=== PATIENT | male | born 1955 | race Caucasian/White ===

== ENCOUNTER → 2017-08-30 | Outpatient (CLI) | payer BC ==
[2015-08-12 09:43] VITALS: BP 112/71
[~2017-08-30] MED LIST: ALLEGRA180 MG PO; CIALIS20 MG PO; DAILY VITE1 TA1 PO; FISH OIL500 MG; FLONASE ALLERG9.9 ML NAS; IRON325 M1; NEXIUM 20MG CAP20 MG PO; VITAMIN E400 UNIT PO; [UNRECOGNIZED DRUG - OTHER]
== END ==
LOC: LAB 09:18
DX: Z00.00 Encounter for general adult medical examination without abnormal findings (principal); Z12.5 Encounter for screening for malignant neoplasm of prostate; Z12.11 Encounter for screening for malignant neoplasm of colon

== ENCOUNTER → 2017-09-15 | Outpatient (CLI) | payer BC ==
[2015-08-12 09:43] VITALS: BP 112/71
== END ==
LOC: LAB 15:06
DX: Z00.00 Encounter for general adult medical examination without abnormal findings (principal); Z12.11 Encounter for screening for malignant neoplasm of colon

== ENCOUNTER → 2018-09-01 | Outpatient (CLI) | payer BC ==
[2015-08-12 09:43] VITALS: BP 112/71
[2018-09-01 09:33] LABS: EOS # 0.1 (0.04-0.40); EOS % 1.2 % (0.0-4.0); HEMATOCRIT 44.9 % (42.0-52.0); LYMPH# 1.8 (1.50-4.00); MEAN CELL VOLUME 88 fl (78-100); MEAN CORPUSCULAR HEMOGLOBIN 29 pg (27-31); MEAN CORPUSCULAR HGB CONC 33 g/dL (33-37); MEAN PLATELET VOLUME 8.8 fl (7.4-10.4); MONO # 0.5 (0.20-0.80); NEU # 3.3 (1.40-6.50); PLATELET COUNT 218 K/mm3 (130-400); RED BLOOD COUNT 5.12 M/mm3 (4.20-5.60); RED CELL DISTRIBUTION WIDTH 13.6 % (11.5-14.5); WHITE BLOOD COUNT 5.7 K/mm3 (4.8-10.8)
[2018-09-01 09:47] LABS: CALCIUM 9.7 mg/dL (8.4-10.2); POTASSIUM 4.1 mmol/L (3.6-5.0); TOTAL BILIRUBIN 0.7 mg/dL (0.2-1.3); TOTAL PROTEIN 6.6 g/dL (6.3-8.2)
[2018-09-01 13:27] LABS: ERYTHROCYTE SEDIMENTATION RATE 5 mm/hr (0-20)
== END ==
LOC: LAB 09:07
PROVIDERS: Internal Medicine
DX: Z12.11 Encounter for screening for malignant neoplasm of colon (principal); Z12.5 Encounter for screening for malignant neoplasm of prostate; Z00.00 Encounter for general adult medical examination without abnormal findings

== ENCOUNTER → 2020-10-23 | Outpatient (CLI) | payer SELFPAY ==
[2015-08-12 09:43] VITALS: BP 112/71
== END ==
LOC: LAB 07:28
DX: U07.1 COVID-19 (principal)

== ENCOUNTER → 2021-05-14 | Outpatient (CLI) | payer MEDICARE ==
[2021-05-14 08:53] LABS: ALBUMIN 3.9 g/dL (3.4-4.8)
[2021-05-14 08:54] LABS: POTASSIUM 4.3 mmol/L (3.5-5.1)
[2021-05-14 08:55] LABS: CALCIUM 9.2 mg/dL (8.3-10.5)
[2021-05-14 08:56] LABS: TOTAL PROTEIN 6.3 g/dL (6.2-8.1)
[2021-05-14 08:58] LABS: TOTAL BILIRUBIN 0.4 mg/dL (0.2-1.2)
[2021-05-14 09:02] LABS: HEMATOCRIT 44.1 % (42.0-52.0); HEMOGLOBIN 15.1 g/dL (13.5-18.0); MEAN PLATELET VOLUME 8.7 fl (7.4-10.4); RED BLOOD COUNT 5.07 M/mm3 (4.20-5.60); RED CELL DISTRIBUTION WIDTH 13.2 % (11.5-14.5); WHITE BLOOD COUNT 4.7 K/mm3 (4.8-10.8)
== END ==
LOC: AMSURD 08:12
PROVIDERS: Internal Medicine
DX: Z01.812 Encounter for preprocedural laboratory examination (principal)

== ENCOUNTER → 2021-09-04 | Outpatient (CLI) | payer MEDICARE ==
[2021-09-04 09:20] LABS: URINE WBC 0 /hpf (0-3)
[2021-09-04 09:38] LABS: BASO # 0.04 K/mm3 (0.02-0.10); EOS # 0.06 K/mm3 (0.04-0.40); EOS % 1.2 % (0.0-4.0); HEMATOCRIT 48.7 % (42.0-52.0); HEMOGLOBIN 16.1 g/dL (13.5-18.0); MEAN CELL VOLUME 91 fl (78-100); MEAN CORPUSCULAR HEMOGLOBIN 30 pg (27-31); MEAN CORPUSCULAR HGB CONC 33 g/dL (33-37); MEAN PLATELET VOLUME 8.6 fl (7.4-10.4); MONO # 0.42 K/mm3 (0.20-0.80); NEU # 3.13 K/mm3 (1.40-6.50); PLATELET COUNT 176 K/mm3 (130-400); RED BLOOD COUNT 5.36 M/mm3 (4.20-5.60); WHITE BLOOD COUNT 4.9 K/mm3 (4.8-10.8)
[2021-09-04 09:42] LABS: POTASSIUM 4.4 mmol/L (3.5-5.1)
[2021-09-04 09:43] LABS: CALCIUM 9.8 mg/dL (8.3-10.5)
[2021-09-04 09:44] LABS: TOTAL PROTEIN 6.7 g/dL (6.2-8.1)
[2021-09-04 09:46] LABS: TOTAL BILIRUBIN 0.6 mg/dL (0.2-1.2)
[2021-09-04 09:48] LABS: URINE APPEARANCE CLEAR; URINE BILIRUBIN NEGATIVE (NEGATIVE); URINE BLOOD TRACE (NEGATIVE); URINE COLOR YELLOW; URINE GLUCOSE NEGATIVE (NEGATIVE); URINE KETONE NEGATIVE (NEGATIVE); URINE LEUKOCYTE ESTERASE NEGATIVE (NEGATIVE); URINE NITRATE NEGATIVE (NEGATIVE); URINE PROTEIN(semi-quant) TRACE mg/dL (NEGATIVE); URINE UROBILINOGEN NORMAL (NORMAL)
[2021-09-04 10:41] LABS: ERYTHROCYTE SEDIMENTATION RATE 0 mm/hr (0-20)
[2021-09-04 22:23] LABS: CREATININE OTHER SOURCE 90 mg/dL (())
[2021-09-04 23:11] LABS: TESTOSTERONE 612 ng/dL (221-716)
== END ==
LOC: LAB 09:06
PROVIDERS: Internal Medicine
DX: G47.33 Obstructive sleep apnea (adult) (pediatric) (principal); K90.9 Intestinal malabsorption, unspecified; M85.80 Other specified disorders of bone density and structure, unspecified site; C61 Malignant neoplasm of prostate; R73.03 Prediabetes; F52.21 Male erectile disorder

== ENCOUNTER → 2022-05-21 | Outpatient (CLI) | payer MEDICARE | LOC: RAD 10:18 | DX: M25.562 Pain in left knee (principal) ==

== ENCOUNTER → 2022-06-08 | Outpatient (CLI) | payer MEDICARE | LOC: RAD 17:22 | DX: S83.412A Sprain of medial collateral ligament of left knee, initial encounter (principal); S80.12XA Contusion of left lower leg, initial encounter ==

== ENCOUNTER → 2022-09-24 | Outpatient (CLI) | payer MEDICARE ==
[2022-09-24 09:01] LABS: URINE WBC 0 /hpf (0-3)
[2022-09-24 09:25] LABS: BASO # 0.04 K/mm3 (0.02-0.10); EOS # 0.08 K/mm3 (0.04-0.40); EOS % 1.7 % (0.0-4.0); HEMATOCRIT 47.5 % (42.0-52.0); HEMOGLOBIN 15.9 g/dL (13.5-18.0); LYMPH# 1.24 K/mm3 (1.50-4.00); MEAN CELL VOLUME 91 fl (78-100); MEAN CORPUSCULAR HEMOGLOBIN 30 pg (27-31); MEAN CORPUSCULAR HGB CONC 34 g/dL (33-37); NEU # 2.85 K/mm3 (1.40-6.50); PLATELET COUNT 185 K/mm3 (130-400); RED BLOOD COUNT 5.24 M/mm3 (4.20-5.60); RED CELL DISTRIBUTION WIDTH 12.7 % (11.5-14.5); WHITE BLOOD COUNT 4.6 K/mm3 (4.8-10.8)
[2022-09-24 09:29] LABS: POTASSIUM 4.4 mmol/L (3.5-5.1)
[2022-09-24 09:30] LABS: ALBUMIN 4.2 g/dL (3.4-4.8)
[2022-09-24 09:32] LABS: TOTAL PROTEIN 6.9 g/dL (6.2-8.1)
[2022-09-24 09:34] LABS: TOTAL BILIRUBIN 0.8 mg/dL (0.2-1.2)
[2022-09-24 10:15] LABS: URINE APPEARANCE CLEAR; URINE BILIRUBIN NEGATIVE (NEGATIVE); URINE BLOOD NEGATIVE (NEGATIVE); URINE COLOR YELLOW; URINE GLUCOSE NEGATIVE (NEGATIVE); URINE KETONE NEGATIVE (NEGATIVE); URINE LEUKOCYTE ESTERASE NEGATIVE (NEGATIVE); URINE NITRATE NEGATIVE (NEGATIVE); URINE PROTEIN(semi-quant) NEGATIVE (NEGATIVE); URINE UROBILINOGEN NORMAL (NORMAL)
[2022-09-24 10:38] LABS: ERYTHROCYTE SEDIMENTATION RATE 7 mm/hr (0-20)
[2022-09-24 22:56] LABS: CREATININE OTHER SOURCE 105 mg/dL (47-110)
== END ==
LOC: LAB 08:52
PROVIDERS: Internal Medicine
DX: Z12.11 Encounter for screening for malignant neoplasm of colon (principal); Z00.00 Encounter for general adult medical examination without abnormal findings; Z23 Encounter for immunization; C61 Malignant neoplasm of prostate; K90.9 Intestinal malabsorption, unspecified; G47.33 Obstructive sleep apnea (adult) (pediatric); N39.41 Urge incontinence; M85.80 Other specified disorders of bone density and structure, unspecified site; R73.03 Prediabetes

== ENCOUNTER → 2024-09-07 | Outpatient (CLI) | payer MEDICARE ==
[2024-09-07 08:21] LABS: BASO # 0.03 K/mm3 (0.02-0.10); EOS # 0.08 K/mm3 (0.04-0.40); EOS % 1.6 % (0.0-4.0); HEMATOCRIT 47.9 % (42.0-52.0); HEMOGLOBIN 16.2 g/dL (13.5-18.0); LYMPH# 1.63 K/mm3 (1.50-4.00); MEAN CELL VOLUME 90 fl (78-100); MEAN CORPUSCULAR HEMOGLOBIN 30 pg (27-31); MEAN CORPUSCULAR HGB CONC 34 g/dL (33-37); MEAN PLATELET VOLUME 8.5 fl (7.4-10.4); MONO # 0.42 K/mm3 (0.20-0.80); NEU # 2.74 K/mm3 (1.40-6.50); PLATELET COUNT 173 K/mm3 (130-400); RED BLOOD COUNT 5.33 M/mm3 (4.20-5.60); RED CELL DISTRIBUTION WIDTH 12.9 % (11.5-14.5); WHITE BLOOD COUNT 4.9 K/mm3 (4.8-10.8)
[2024-09-07 08:26] LABS: ALBUMIN 4.2 g/dL (3.4-4.8)
[2024-09-07 08:29] LABS: TOTAL PROTEIN 6.5 g/dL (6.2-8.1)
[2024-09-07 08:31] LABS: TOTAL BILIRUBIN 0.9 mg/dL (0.2-1.2)
[2024-09-07 08:35] LABS: MAGNESIUM 2.29 mg/dL (1.60-2.60)
[2024-09-07 09:00] LABS: PH-URINE 6.5 (5.0 - 8.0); URINE APPEARANCE CLEAR (CLEAR); URINE BILIRUBIN NEGATIVE (NEGATIVE); URINE BLOOD NEGATIVE (NEGATIVE); URINE COLOR YELLOW (YELLOW); URINE GLUCOSE NEGATIVE (NEGATIVE); URINE KETONE NEGATIVE (NEGATIVE); URINE LEUKOCYTE ESTERASE NEGATIVE (NEGATIVE); URINE MUCUS PRESENT (NOT PRESENT); URINE NITRATE NEGATIVE (NEGATIVE); URINE PROTEIN(semi-quant) NEGATIVE (NEGATIVE); URINE WBC 0-1 /hpf (0-3)
== END ==
LOC: LAB 08:07
PROVIDERS: Internal Medicine
DX: Z12.11 Encounter for screening for malignant neoplasm of colon (principal); C61 Malignant neoplasm of prostate; K90.9 Intestinal malabsorption, unspecified; M85.80 Other specified disorders of bone density and structure, unspecified site; R73.03 Prediabetes

== ENCOUNTER → 2024-09-21 | Outpatient (CLI) | payer MEDICARE | LOC: LAB 09:52 | DX: Z12.11 Encounter for screening for malignant neoplasm of colon (principal); C61 Malignant neoplasm of prostate; K90.9 Intestinal malabsorption, unspecified; M85.80 Other specified disorders of bone density and structure, unspecified site; R73.03 Prediabetes ==